=== PATIENT | female | born 1985 | race American Indian/Alaskan Native ===

== ENCOUNTER 2016-09-19 09:42 | Emergency (ER) | payer SELFPAY ==
--- NOTE | 2016-09-19 09:51 | Emergency Department Report ---
Chief Complaint: Vaginal Bleeding Stated Complaint: POSSIBLE MISCARRIAGE Time Seen by Provider: 09/19/16 09:46 - HPI History of Present Illness: PT states her lmp was 17. PT states she had a positive home test. PT states she went to a clinic and had her confirmed on . PT states she had heavy vaginal bleeding on 09-11-16. PT states she called the clinic and was told it could be implantation bleeding. PT states she is currently not bleeding but she took another home test and it said negative. PT states she just wants to know what is going on. - ROS Review of Systems: - vaginal bleeding - discharge - dysuria - pain - Exam Physical Exam: PT looks well, non toxic steady gait abd is soft and not tender MSE screening note: Focused history and physical exam performed. Due to findings the following was ordered: us, labs ED Disposition for MSE Condition: Stable
[2016-09-19 09:52] VITALS: BP 122/84
[2016-09-19 10:35] LABS: Basophils % (Auto) 0.6 % (0.0-1.8); Eosinophils % (Auto) 0.5 % (0.0-4.3); Hematocrit 38.3 % (30.3-42.9); Mean Corpuscular HGB Conc 34 % (30-34); Mean Corpuscular Hemoglobin 30 pg (28-32); Mean Corpuscular Volume 90 fl (79-97); Platelet Count 259 K/mm3 (140-440); Red Blood Count 4.27 M/mm3 (3.65-5.03); White Blood Count 6.1 K/mm3 (4.5-11.0)
[2016-09-19 10:44] LABS: Alanine Aminotransferase 9 units/L (7-56); Albumin 4.5 g/dL (3.9-5); Albumin/Globulin Ratio 1.3 %; Alkaline Phosphatase 76 units/L (35-129); Anion Gap 19 mmol/L; Blood Urea Nitrogen 7 mg/dL (7-17); Calcium 9.3 mg/dL (8.4-10.2); Carbon Dioxide 26 mmol/L (22-30); Chloride 98.6 mmol/L (98-107); Glucose 121 mg/dL (65-100); Potassium 4.1 mmol/L (3.6-5.0); Sodium 139 mmol/L (137-145)
--- NOTE | 2016-09-19 14:26 | Ultrasound Report ---
ULTRASOUND PELVIS COMPLETE - TRANSABDOMINAL AND TRANSVAGINAL: INDICATION: Recent miscarriage. COMPARISON: None similar at this institution. FINDINGS: Transabdominal and transvaginal pelvic sonography performed in this patient with LMP of 08/02/2016 demonstrates a 7.7 x 3.3 x 6.4 cm anteverted uterus. Endometrial stripe thickness of 0.3 cm, endovaginal image 3. No IUP. Small nabothian cyst. No pelvic free fluid. Right ovary is 3.6 x 1.8 x 2.3 cm. Left ovary is 3.2 x 1.5 x 2.3 cm. Few small bilateral ovarian follicles. CONCLUSION: Physiologic pelvic sonogram, as described. Thank you for the opportunity to participate in this patient's care.
--- NOTE | 2016-09-19 22:04 | Emergency Department Report ---
Entered by KAI DAVIS, acting as scribe for EVELIO RAMOS NP. ED Female HPI - General Chief complaint: Vaginal Bleeding Stated complaint: POSSIBLE MISCARRIAGE Time Seen by Provider: 09/19/16 09:46 Source: patient Mode of arrival: Ambulatory Limitations: No Limitations - History of Present Illness Initial comments: This is a 31 year old female nontoxic, well nourished in appearance, no acute signs of distress presents to ED c/o of an evaulation. Patient stated had a home positive test last week. Patient states she was in clinic and her but this was confirmed on 09/09/16. Patient stated 2 days later on 09/11/16 patient developed heavy vaginal bleeding. Patient then stated she called the clinic and was instructed that it may be able implantation bleeding and if concerns go to the emergency room. Patient also states that she took several test are negative as of today. Patient stated she is here today to get an evaluation if she is or not. Patient denies currently any vaginal bleeding or abdominal/pelvic pain. Patient denies dizziness, vaginal discharge, weakness, abd pain, headache, n/v, dysuria, urgency, CP, SOB , frequency, and weakness. Denies allergies. Denies PMH. MD Complaint: other (possible miscarriage) Are you Now?: No (unknown) Last Menstrual Period: 08/02/16 EDC: 05/09/17 Associated Symptoms: denies other symptoms. denies: vaginal discharge, vaginal bleeding, abdominal pain, nausea/vomiting, fever/chills, headaches, loss of appetite, dysuria, hematuria, rash, seizure, shortness of breath, syncope, weakness - Related Data Sexually active: Yes Home Medications Medication Instructions Recorded Confirmed Last Taken No Known Home Medications [No 09/19/16 09/19/16 Unknown Reported Home Medications] Allergies Allergy/AdvReac Type Severity Reaction Status Date / Time No Known Allergies Allergy Unverified 09/19/16 09:53 ED Review of Systems Comment: All other systems reviewed and negative Constitutional: denies: chills, fever Eyes: denies: eye pain, eye discharge, vision change ENT: denies: ear pain, throat pain Respiratory: denies: cough, shortness of breath, wheezing Cardiovascular: denies: chest pain, palpitations Endocrine: no symptoms reported Gastrointestinal: denies: abdominal pain, nausea, diarrhea Genitourinary: denies: urgency, dysuria, discharge Musculoskeletal: denies: back pain, joint swelling, arthralgia Skin: denies: rash, lesions Neurological: denies: headache, weakness, numbness, paresthesias Psychiatric: denies: anxiety, depression Hematological/Lymphatic: denies: easy bleeding, easy bruising ED Past Medical Hx - Past Medical History Previous Medical History?: Yes Additional medical history: Poss miscarriage - Surgical History Past Surgical History?: No - Social History Smoking Status: Never Smoker Substance Use Type: Non Opiate Pain - Medications Home Medications: Home Medications Medication Instructions Recorded Confirmed Last Taken Type No Known Home Medications [No 09/19/16 09/19/16 Unknown History Reported Home Medications] ED Physical Exam - General Limitations: No Limitations General appearance: alert, in no apparent distress - Head Head exam: Present: atraumatic, normocephalic, normal inspection - Eye Eye exam: Present: normal appearance, PERRL, EOMI. Absent: scleral icterus, conjunctival injection, nystagmus, periorbital swelling, periorbital tenderness Pupils: Present: normal accommodation - ENT ENT exam: Present: normal exam, normal orophraynx, mucous membranes moist, TM's normal bilaterally, normal external ear exam - Neck Neck exam: Present: normal inspection, full ROM. Absent: tenderness, meningismus, lymphadenopathy, thyromegaly - Respiratory Respiratory exam: Present: normal lung sounds bilaterally. Absent: respiratory distress, wheezes, rales, rhonchi, stridor, chest wall tenderness, accessory muscle use, decreased breath sounds, prolonged expiratory - Cardiovascular Cardiovascular Exam: Present: regular rate, normal rhythm, normal heart sounds. Absent: bradycardia, tachycardia, irregular rhythm, systolic murmur, diastolic murmur, rubs, gallop - GI/Abdominal GI/Abdominal exam: Present: soft, normal bowel sounds. Absent: distended, tenderness, guarding, rebound, rigid, diminished bowel sounds - Rectal Rectal exam: Present: deferred - Extremities Exam Extremities exam: Present: normal inspection, full ROM, normal capillary refill. Absent: tenderness, pedal edema, joint swelling, calf tenderness - Back Exam Back exam: Present: normal inspection, full ROM. Absent: tenderness, CVA tenderness (R), CVA tenderness (L), muscle spasm, paraspinal tenderness, vertebral tenderness, rash noted - Neurological Exam Neurological exam: Present: alert, oriented X3, CN II-XII intact, normal gait, reflexes normal - Psychiatric Psychiatric exam: Present: normal affect, normal mood - Skin Skin exam: Present: warm, dry, intact, normal color. Absent: rash ED Course Vital Signs 09/19/16 09:48 Temperature 98.8 F Pulse Rate 89 Respiratory 20 Rate Blood Pressure 122/84 O2 Sat by Pulse 100 Oximetry - Reevaluation(s) Reevaluation #1: 09/19/16 14:40 Patient is abot to speak in full sentences with no signs of distress noted. ED Medical Decision Making - Lab Data Result diagrams: 09/19/16 10:03 09/19/16 10:03 - Medical Decision Making Ed course: This is a 31-year-old female that presents for evaluation 1- patient was examined myself. Denies vaginal bleeding currently, or discharge. CBC, BMP, vikram hCG, and type and screen has been obtained. Quad ECG 0.5. Transvaginal and pelvic ultrasound has been obtained. Dictated by Dr. Queen. No IUP present. 2-patient was notified of results of ultrasound and Vikram hCG with no further was noted by the patient. 3- patient was instructed to follow-up with her [employer] and primary care doctor in 3-5 days or symptoms such as increased bleeding, bowel pain, pelvic pain, fever, chills, headache or shortness of breath presented to the emergency room as was possible. 4- at time time of discharge, the patient does not seem toxic or ill in appearance. No acute signs of distress noted. Patient agrees to discharge treatment plan of care. No further questions noted by the patient. ED Disposition Clinical Impression: Spontaneous miscarriage Disposition: DC-01 TO HOME OR SELFCARE Is pt being admited?: No Does the pt Need Aspirin: No Condition: Stable Instructions: Spontaneous Miscarriage (ED) Additional Instructions: follow-up with your [employer] and primary care doctor in 3-5 days or symptoms such as increased bleeding, bowel pain, pelvic pain, fever, chills, headache or shortness of breath presented to the emergency room as was possible. Referrals: PRIMARY CARE, [Primary Care Provider] - 3-5 Days JACINTO ROBIN MD [Staff Physician] - 3-5 Days [facility] [Outside] - 3-5 Days [facility] [Outside] - 3-5 Days Forms: Work/School Release Form(ED) This documentation as recorded by the SUSAN jones PEARL,accurately reflects the service I personally performed and the decisions made by me,EVELIO RAMOS, [employer]ER.
== END 2016-09-19 14:53 | disposition home or self-care (01) ==
LOC: ED 09:42
DX: O03.9 Complete or unspecified spontaneous abortion without complication (principal); Z3A.00 Weeks of gestation of pregnancy not specified
CPT/HCPCS: 36415; 76830; 76856; 80053; 84702; 85025; 86850; 86900; 86901